=== PATIENT | male | born 1970 | race Caucasian/White ===

== ENCOUNTER 2017-05-16 18:01 | Emergency (ER) | payer BC, OTHER ==
[2017-05-16] MEDS ORDERED: Sodium Chloride 0.9% 1,000 ML IV ONE ×2 (18:27→19:47)
[2017-05-16] MEDS ORDERED: Insulin Regular, Human 100 Units/ML 10 ML Vial IVPUSH ONE (18:28)
--- NOTE | 2017-05-16 18:31 | EDM.PDOC ---
[id number] Complaint: Diabetic Complaint Stated Complaint: DIABETIC ISSUES Time Seen by Provider: 05/16/17 18:04 - Related Data Allergies Allergy/AdvReac Type Severity Reaction Status Date / Time No Known Allergies Allergy Verified 05/16/17 18:18 Past Medical History Endocrine/Metabolic History: Reports: Diabetes, Type II ED EXAM GENERAL NO PERIP PULSE - Physical Exam Exam: See Below Course - Vital Signs Last Recorded V/S: Last Vital Signs Temp 36.6 C 05/16/17 20:50 Pulse 100 05/16/17 20:50 Resp 20 05/16/17 20:50 BP 118/56 L 05/16/17 20:50 Pulse Ox 97 05/16/17 20:50 - Orders/Labs/Meds Orders: Active Orders 24 hr Category Date Time Status Blood Glucose Check, Bedside [RC] ASDIRECTED Care 05/16/17 18:33 Active Saline Lock Insert [OM.PC] Stat Oth 05/16/17 18:26 Ordered Labs: Laboratory Tests 05/16/17 05/16/17 05/16/17 Range/Units 18:15 18:48 19:12 ABG pH 7.439 (7.35-7.45) ABG pCO2 39 (35-45) mmHG ABG pO2 29 L* (75-100) mmHG ABG HCO3 26 (22-26) mEq/L ABG Total CO2 23.6 ABG Base Excess 1.8 (-2.0-2.0) POC Glucose > 500 H (60-110) mg/dL Urine Color YELLOW Urine Appearance CLEAR Urine pH 5.0 (5.0-8.0) Ur Specific Walker <= 1.005 (1.001-1.035) Urine Protein NEGATIVE (NEGATIVE) mg/dL Urine Glucose (UA) >=1000 (NEGATIVE) mg/dL Urine Ketones 15 H (NEGATIVE) mg/dL Urine Occult Blood NEGATIVE (NEGATIVE) Urine Nitrite NEGATIVE (NEGATIVE) Urine Bilirubin NEGATIVE (NEGATIVE) Urine Urobilinogen 0.2 (<2.0) EU/dL Ur Leukocyte Esterase NEGATIVE (NEGATIVE) Urine RBC 0-3 (0-2/HPF) Urine WBC 1-3 (0-5/HPF) Ur Epithelial Cells FEW (NONE-FEW) Urine Bacteria FEW (NEGATIVE) Meds: Medications Discontinued Medications Generic Name Dose Route Start Last Admin Trade Name Freq PRN Reason Stop Dose Admin Sodium Chloride 1,000 mls @ 999 mls/hr 05/16/17 18:27 05/16/17 18:52 Normal Saline IV 05/16/17 19:27 999 mls/hr .Bolus ONE Administration Sodium Chloride 1,000 mls @ 250 mls/hr 05/16/17 19:47 05/16/17 19:48 Normal Saline IV 05/16/17 23:46 250 mls/hr .Bolus ONE Administration Insulin Glargine 20 units 05/16/17 19:14 05/16/17 19:19 Lantus Solostar SUBCUT 05/16/17 19:15 20 units ONETIME ONE Administration Insulin Human Regular 10 unit 05/16/17 18:28 05/16/17 18:51 Novolin R IVPUSH 05/16/17 18:29 10 units ONETIME ONE Administration Protocol - Re-Assessments/Exams Free Text/Narrative Re-Assessment/Exam: 05/16/17 20:33 he is feeling much better. His room air oxygen saturation is 98%. I believe that the blood gas result is most likely venous as the PO2 is not c/w measures transcutaneous oxygen saturation. He is ambulating without feeling weak . He feels no sense of disequilibrium. His last poc glucose is in the 300's . I advised regarding monitoring home blood sugars and follow up with Dr Rivera within a week. He was given 20 units of lantus insulin . He just filled his prescription of lantus today as he has been out of insulin for about six weeks. He is instructed to continue to take his medicines as previously directed by Dr Rivera. Departure - Departure Time of Disposition: 20:37 Disposition: Home, Self-Care 01 Condition: Good Clinical Impression: Hyperglycemia due to type 2 diabetes mellitus - Discharge Information Instructions: Type 2 Diabetes Mellitus, Adult, [id number] Referrals: Cyrus Rivera MD [Primary Care Provider] - Forms: ED Department Discharge Additional Instructions: follow up with Dr Rivera next week - My Orders Last 24 Hours: My Active Orders 05/16/17 18:26 Saline Lock Insert [OM.PC] Stat 05/16/17 18:33 Blood Glucose Check, Bedside [RC] ASDIRECTED - Assessment/Plan Last 24 Hours: My Active Orders 05/16/17 18:26 Saline Lock Insert [OM.PC] Stat 05/16/17 18:33 Blood Glucose Check, Bedside [RC] ASDIRECTED <Kelsey Enriquez - Last Filed: 05/17/17 07:17> ED HPI GENERAL MEDICAL PROBLEM - General Source of Information: Reports: Patient History Limitations: Reports: No Limitations - History of Present Illness INITIAL COMMENTS - FREE TEXT/NARRATIVE: History of present illness: []Patient is an insulin-dependent diabetic who has been off his insulin for several weeks because he was unable to fill it. He has been feeling weak, urinating large amounts and very thirsty. Patient states he knows his glucose is high so he went to Dr. Kovacs today. They did blood work and found his glucose to be 551 and told him to come to the emergency room for evaluation. He denies any chest pain, shortness of breath, fevers, chills, nausea or vomiting. Review of systems: As per history of present illness and below otherwise all systems reviewed and negative. Past medical history: As per history of present illness and as reviewed below otherwise noncontributory. Surgical history: As per history of present illness and as reviewed below otherwise noncontributory. Social history: No reported history of drug or alcohol abuse. Family history: As per history of present illness and as reviewed below otherwise noncontributory. Physical exam: General: Well developed, well nourished in NAD HEENT: Atraumatic, normocephalic, pupils reactive, negative for conjunctival pallor or scleral icterus, mucous membranes moist, throat clear, neck supple, nontender, trachea midline. Lungs: Clear to auscultation, breath sounds equal bilaterally, chest nontender. Heart: S1S2, regular, negative for clicks, rubs, or JVD. Abdomen: Soft, nondistended, nontender. Negative for masses or hepatosplenomegaly. Negative for costovertebral tenderness. Pelvis: Stable nontender. Genitourinary: Deferred. Rectal: Deferred. Extremities: Atraumatic, negative for cords or calf pain. Neurovascular unremarkable. Neuro: Awake, alert, oriented. Cranial nerves II through XII unremarkable. Cerebellum unremarkable. Motor and sensory unremarkable throughout. Exam nonfocal. Diagnostics: []Blood gas acidosis was ordered Therapeutics: []IV hydration regular insulin 10 units given Impression: []Noncompliant insulin-dependent diabetic, patient is signed out to for further diagnosis and disposition Plan: [] Definitive disposition and diagnosis as appropriate pending reevaluation and review of above. ED ROS GENERAL - Review of Systems Review Of Systems: See Below (See history of present illness) ED EXAM GENERAL NO PERIP PULSE - Physical Exam Exam: See Below (See history of present illness) Course - Orders/Labs/Meds Orders: Active Orders 24 hr Category Date Time Status Blood Glucose Check, Bedside [RC] ASDIRECTED Care 05/16/17 18:33 Active Saline Lock Insert [OM.PC] Stat Oth 05/16/17 18:26 Ordered Labs: Laboratory Tests 05/16/17 05/16/17 05/16/17 Range/Units 18:15 18:48 19:12 ABG pH 7.439 (7.35-7.45) ABG pCO2 39 (35-45) mmHG ABG pO2 29 L* (75-100) mmHG ABG HCO3 26 (22-26) mEq/L ABG Total CO2 23.6 ABG Base Excess 1.8 (-2.0-2.0) POC Glucose > 500 H (60-110) mg/dL Urine Color YELLOW Urine Appearance CLEAR Urine pH 5.0 (5.0-8.0) Ur Specific Walker <= 1.005 (1.001-1.035) Urine Protein NEGATIVE (NEGATIVE) mg/dL Urine Glucose (UA) >=1000 (NEGATIVE) mg/dL Urine Ketones 15 H (NEGATIVE) mg/dL Urine Occult Blood NEGATIVE (NEGATIVE) Urine Nitrite NEGATIVE (NEGATIVE) Urine Bilirubin NEGATIVE (NEGATIVE) Urine Urobilinogen 0.2 (<2.0) EU/dL Ur Leukocyte Esterase NEGATIVE (NEGATIVE) Urine RBC 0-3 (0-2/HPF) Urine WBC 1-3 (0-5/HPF) Ur Epithelial Cells FEW (NONE-FEW) Urine Bacteria FEW (NEGATIVE) Meds: Medications Discontinued Medications Generic Name Dose Route Start Last Admin Trade Name Freq PRN Reason Stop Dose Admin Sodium Chloride 1,000 mls @ 999 mls/hr 05/16/17 18:27 05/16/17 18:52 Normal Saline IV 05/16/17 19:27 999 mls/hr .Bolus ONE Administration Sodium Chloride 1,000 mls @ 250 mls/hr 05/16/17 19:47 05/16/17 19:48 Normal Saline IV 05/16/17 23:46 250 mls/hr .Bolus ONE Administration Insulin Glargine 20 units 05/16/17 19:14 05/16/17 19:19 Lantus Solostar SUBCUT 05/16/17 19:15 20 units ONETIME ONE Administration Insulin Human Regular 10 unit 05/16/17 18:28 05/16/17 18:51 Novolin R IVPUSH 05/16/17 18:29 10 units ONETIME ONE Administration Protocol - My Orders Last 24 Hours: My Active Orders 05/16/17 18:26 Saline Lock Insert [OM.PC] Stat 05/16/17 18:33 Blood Glucose Check, Bedside [RC] ASDIRECTED - Assessment/Plan Last 24 Hours: My Active Orders 05/16/17 18:26 Saline Lock Insert [OM.PC] Stat 05/16/17 18:33 Blood Glucose Check, Bedside [RC] ASDIRECTED
[2017-05-16] MEDS ORDERED: Insulin Glargine,Human Rec. Analog 100 Units/ML 3 ML Pen SUBCUT ONE (19:14)
[2017-05-16] MEDS ORDERED: Sodium Chloride 0.9% 250 ML IV SCH (19:30)
[2017-05-16 20:53] VITALS: BP 118/56
== END 2017-05-16 20:50 | disposition home or self-care (01) ==
LOC: MW.ED 18:01 → MERGE 18:01 → MW.ED 20:50
DX: E11.65 Type 2 diabetes mellitus with hyperglycemia (principal); Z91.14 Patient's other noncompliance with medication regimen
CPT/HCPCS: 36600; 81001; 82803; 82962; 96361; 96372; 96374; 99284; J1815; J7040

== ENCOUNTER 2017-05-25 23:42 | Emergency (ER) | payer BC, OTHER ==
[2017-05-25] MEDS ORDERED: Sodium Chloride 0.9% 10 ML Syringe FLUSH PRN (23:43)
[2017-05-25] MEDS ORDERED: Sodium Chloride 0.9% 2.5 ML Syringe FLUSH PRN (23:43)
[2017-05-25] MEDS ORDERED: Insulin Regular, Human 100 Units/ML 10 ML Vial SUBCUT ONE (23:45)
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
[2017-05-26] MEDS ORDERED: Sodium Chloride 0.9% 1,000 ML IV ONE (00:01)
--- NOTE | 2017-05-26 00:03 | PCM.SN ---
- Free Text/Narrative Note: Called for Trauma Code, present on pt arrival. VSS on arrival. C-Collar placed in ER on arrival. Highly suspicious for SCI, no motor function in all four extremities. Decreased sensation is noted at the level of the xiphoid process down. Flight team is at the bedside for transfer at this time.
[2017-05-26 00:04] LABS: CHLORIDE,CL 98 mmol/L (98-110); SODIUM,NA 128 mmol/L (136-146)
[2017-05-26 03:12] VITALS: BP 102/53
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
--- NOTE | 2017-05-28 10:46 | CR ---
EXAM DATE: 05/25/17 PATIENT'S AGE: 47 Patient: VERONICA KEEN Facility: [place], [place] Site . Site : 1970 Study: XRay Spine Cervical [id number]/29/2017 12:41:38 AM Ordering Physician: Peri Marvin Final Report: INDICATION: And TECHNIQUE: Single lateral view cervical spine. COMPARISON: None FINDINGS/ IMPRESSION: The lateral film includes the skullbase to the C5 inferior endplate. No fracture or subluxation identified in the visualized portions of the cervical spine. Recommend swimmer`s view or CT for complete evaluation of the cervical vertebrae. Dictated by Kendra Son MD @ May 26 2017 12:48AM (Electronic Signature) Report Signed by Proxy. [facility]
== END 2017-05-26 00:10 ==
LOC: MW.ED 23:42
DX: S24.109A Unspecified injury at unspecified level of thoracic spinal cord, initial encounter (principal); S01.01XA Laceration without foreign body of scalp, initial encounter; S80.211A Abrasion, right knee, initial encounter; S80.212A Abrasion, left knee, initial encounter; S50.312A Abrasion of left elbow, initial encounter; E11.65 Type 2 diabetes mellitus with hyperglycemia; Z98.890 Other specified postprocedural states; V84.5XXA Driver of special agricultural vehicle injured in nontraffic accident, initial encounter; Y93.H3 Activity, building and construction; Y92.64 Mine or pit as the place of occurrence of the external cause; Y99.0 Civilian activity done for income or pay
CPT/HCPCS: 36415; 51702; 71010; 72020; 72170; 80053; 81001; 82009; 83690; 85025; 85610; 96372; 99291; J7040; 99285; G0390